=== PATIENT | female | born 1955 | race Caucasian/White ===

== ENCOUNTER 2019-04-22 12:23 | Emergency (ER) | payer OTHER ==
[~2019-04-22] VITALS: Ht 157.5 cm; Wt 47.2 kg
[2019-04-22] MEDS ORDERED: ACTONEL5 MG (13:18)
== END 2019-04-22 17:33 | disposition home or self-care (01) ==
LOC: ER 12:23
DX: J01.00 Acute maxillary sinusitis, unspecified (principal); R51 Headache

== ENCOUNTER 2021-09-06 07:58 | Outpatient (CLI) | payer OTHER ==
[~2021-09-06 07:58] MED LIST: ACTONEL5 MG
== END 2021-09-06 08:12 | disposition home or self-care (01) ==
LOC: RX STUDY 07:58
PROVIDERS: ATTEND Internal Medicine Gastroenterology
DX: R10.31 Right lower quadrant pain (principal)